=== PATIENT | male | born 1970 | race African-American/Black ===

== ENCOUNTER 2019-03-12 03:42 | Emergency (ER) | payer OTHER ==
[2019-03-12 03:54] VITALS: BP 131/85; PULSE 74; TEMP 98.8; BMI 29.2
--- NOTE | 2019-03-14 10:57 | EKG ---
Test Reason : Blood Pressure : / mmHG Vent. Rate : 068 BPM Atrial Rate : 068 BPM P-R Int : 174 ms QRS Dur : 088 ms QT Int : 388 ms P-R-T Axes : 053 028 025 degrees QTc Int : 412 ms NORMAL SINUS RHYTHM NORMAL ECG WHEN COMPARED WITH ECG OF 15-JAN-2017 10:45, CRITERIA FOR SEPTAL INFARCT ARE NO LONGER PRESENT Confirmed by NEDA MORRIS MD ([id number]) on 03/14/2019 10:56:44 AM Referred By: Confirmed By:NEDA MORRIS MD
== END 2019-03-12 06:50 | disposition left against medical advice (07) ==
LOC: JER 03:42
DX: Z53.21 Procedure and treatment not carried out due to patient leaving prior to being seen by health care provider (principal)
CPT/HCPCS: 93005; 93010; 99281-25

== ENCOUNTER → 2021-03-29 | Day surgery (SDC) | payer OTHER | END | disposition home or self-care (01) | LOC: JRADIR 10:37 | PROVIDERS: ATTEND Family Medicine | PROC: 0G9G3ZX Drainage of Left Thyroid Gland Lobe, Percutaneous Approach, Diagnostic (ICD-10-PCS; principal; 2021-03-29) | DX: E04.1 Nontoxic single thyroid nodule (principal) | CPT/HCPCS: 10005; 76942; 88173; 88305-TC ==

== ENCOUNTER 2021-06-25 13:47 | Emergency (ER) | payer OTHER ==
[2021-06-25 14:06] VITALS: BP 128/88; PULSE 86; TEMP 98.1; BMI 28.5
[2021-06-25] MEDS ORDERED: SODIUM CHLORIDE 0.9% 500 ML INFUS.BAG IV ONE (14:48)
[2021-06-25 15:32] LABS: HEMOGLOBIN 14.7 GM/dL (11.7-16.9); LYMPH % 34.7 % (8-40); MCH 29.6 pg (25.7-33.7); MCHC 34.2 g/dl (32.0-35.9); MEAN CELL VOLUME 86.6 fl (80-96); MEAN PLT VOLUME 8.6 fl (7.5-11.1); NEUT % 49.9 % (42.8-82.8); PLATELET COUNT 206 10^3/uL (134-434); RBC 4.97 M/mm3 (4.00-5.60); RDW 14.8 % (11.9-15.9); WHITE BLOOD COUNT 8.8 K/mm3 (4.0-10.0)
[2021-06-25 15:33] LABS: BASO % 0.7 % (0-2.0); EOS % 2.7 % (0-4.5)
[2021-06-25 15:56] LABS: CALCIUM 8.5 mg/dL (8.5-10.1)
[2021-06-25 15:57] LABS: ALBUMIN 3.9 g/dl (3.4-5.0)
[2021-06-25 16:00] LABS: CREATININE 1.1 mg/dL (0.55-1.3)
[2021-06-25 16:01] LABS: BILIRUBIN,TOTAL 0.8 mg/dL (0.2-1); TOT PROT 7.4 g/dl (6.4-8.2)
== END 2021-06-25 17:08 | disposition home or self-care (01) ==
LOC: JER 13:47
DX: R19.7 Diarrhea, unspecified (principal); Z11.52 Encounter for screening for COVID-19
CPT/HCPCS: 36415; 80053; 85025; 99284-25; C9803; U0003; U0005

== ENCOUNTER 2022-07-14 10:55 | Emergency (ER) | payer OTHER ==
[2022-07-14 11:13] VITALS: BP 117/81; PULSE 73; RESP 19; TEMP 97.9; BMI 29.8
[2022-07-14] MEDS ORDERED: IBUPROFEN 600 MG TABLET (FP) PO ONE ×2 (12:04→12:17)
== END 2022-07-14 12:40 | disposition home or self-care (01) ==
LOC: JER 10:55
DX: R51.9 Headache, unspecified (principal); Z20.822 Contact with and (suspected) exposure to COVID-19
CPT/HCPCS: 0241U-QW; 99283-25

== ENCOUNTER 2022-10-09 09:49 | Emergency (ER) | payer OTHER ==
[2022-10-09 10:17] VITALS: BP 121/80; PULSE 87; RESP 20; TEMP 98; BMI 30.7
[2022-10-09] MEDS ORDERED: ACETAMINOPHEN 1000 MG/100 ML BAG IVPB ONE (10:27)
[2022-10-09] MEDS ORDERED: FAMOTIDINE 20 MG/50 ML IVPB 20 MG/50 ML MG IVPB ONE ×2 (10:27→10:53)
[2022-10-09] MEDS ORDERED: SODIUM CHLORIDE 0.9% 500 ML INFUS.BAG IV ONE (10:27)
[2022-10-09] MEDS ORDERED: MAG HYDROX/AL HYDROX/SIMETH 30 ML UNIT-DOSE CUP PO ONE (10:27)
[2022-10-09 10:46] LABS: BASO % 1.3 % (0-2.0); EOS % 4.4 % (0-4.5); HEMATOCRIT 46.1 % (35.4-49); HEMOGLOBIN 15.3 GM/dL (11.7-16.9); LYMPH % 37.6 % (8-40); MCHC 33.2 g/dl (32.0-35.9); MEAN CELL VOLUME 87.1 fl (80-96); MEAN PLT VOLUME 8.6 fl (7.5-11.1); MONO % 9.9 % (3.8-10.2); NEUT % 46.8 % (42.8-82.8); PLATELET COUNT 255 10^3/uL (134-434); RBC 5.29 M/mm3 (4.00-5.60); RDW 15.3 % (11.9-15.9)
[2022-10-09] MEDS ORDERED: ACETAMINOPHEN INJECTION 100 ML IVPB ONE (10:52)
[2022-10-09] MEDS ORDERED: MAG HYDROX/AL HYDROX/SIMETH 30 ML UNIT-DOSE CUP ONE (10:52)
[2022-10-09 10:54] LABS: INR 1.09 (0.83-1.09); PROTHROMBIN TIME (PATIENT) 12.6 SEC (9.7-13.0)
[2022-10-09 10:56] LABS: ACTIVATED PTT 30.1 SECONDS (25.2-36.5)
[2022-10-09 11:14] LABS: CALCIUM 9.2 mg/dL (8.5-10.1)
[2022-10-09 11:15] LABS: ALBUMIN 3.8 g/dl (3.4-5.0)
[2022-10-09 11:29] LABS: BILIRUBIN,TOTAL 0.9 mg/dL (0.2-1); CREATININE 0.9 mg/dL (0.55-1.3); TOT PROT 7.1 g/dl (6.4-8.2)
== END 2022-10-09 13:30 | disposition home or self-care (01) ==
LOC: JER 09:49
PROC: 3E0333Z Introduction of Anti-inflammatory into Peripheral Vein, Percutaneous Approach (ICD-10-PCS; principal; 2022-10-09)
PROC: 3E033GC Introduction of Other Therapeutic Substance into Peripheral Vein, Percutaneous Approach (ICD-10-PCS; 2022-10-09)
DX: R07.9 Chest pain, unspecified (principal)
CPT/HCPCS: 36415; 71045-TC-FY; 80053; 83735; 84484; 85025; 85610; 85730; 93005; 93010; 99285-25

== ENCOUNTER 2023-05-09 14:00 | Emergency (ER) | payer OTHER ==
[2023-05-09 14:15] VITALS: TEMP 98.3; BMI 30.7
[2023-05-09 15:06] LABS: EOS % 3.2 % (0-4.5); HEMATOCRIT 45.7 % (35.4-49); HEMOGLOBIN 15.5 GM/dL (11.7-16.9); LYMPH % 39.9 % (8-40); MCH 28.7 pg (25.7-33.7); MCHC 33.8 g/dl (32.0-35.9); MEAN CELL VOLUME 85.1 fl (80-96); MONO % 12.4 % (3.8-10.2); NEUT % 43.5 % (42.8-82.8); PLATELET COUNT 216 10^3/uL (134-434); RBC 5.37 M/mm3 (4.00-5.60); RDW 15.3 % (11.9-15.9); WHITE BLOOD COUNT 7.4 K/mm3 (4.0-10.0)
[2023-05-09] MEDS ORDERED: MAG HYDROX/AL HYDROX/SIMETH 30 ML UNIT-DOSE CUP PO ONE (15:14)
[2023-05-09] MEDS ORDERED: FAMOTIDINE 20 MG/50 ML IVPB 20 MG/50 ML MG IVPB ONE ×2 (15:14→15:33)
[2023-05-09] MEDS ORDERED: MAG HYDROX/AL HYDROX/SIMETH 30 ML UNIT-DOSE CUP ONE (15:33)
[2023-05-09 15:36] LABS: POTASSIUM 4.5 mmol/L (3.5-5.1)
[2023-05-09 15:39] LABS: ALBUMIN 4.1 g/dl (3.4-5.0); BLOOD UREA NITROGEN 10.9 mg/dL (7-18); CALCIUM 9.3 mg/dL (8.5-10.1)
[2023-05-09 15:44] LABS: BILIRUBIN,TOTAL 1.1 mg/dL (0.2-1); TOT PROT 7.3 g/dl (6.4-8.2)
[2023-05-09 16:23] VITALS: BP 170/73; PULSE 61; RESP 14
== END 2023-05-09 16:38 | disposition home or self-care (01) ==
LOC: JER 14:00
PROC: 3E033GC Introduction of Other Therapeutic Substance into Peripheral Vein, Percutaneous Approach (ICD-10-PCS; principal; 2023-05-09)
DX: R12 Heartburn (principal); R07.2 Precordial pain
CPT/HCPCS: 36415; 71045-TC-FY; 80053; 84484; 85025; 93005; 93010; 99285-25

== ENCOUNTER 2023-12-06 20:32 | Emergency (ER) | payer OTHER ==
[2023-12-06 20:38] VITALS: BMI 30.4
[2023-12-06] MEDS ORDERED: ACETAMINOPHEN 1000 MG/100 ML BAG IVPB ONE (21:24)
[2023-12-06] MEDS ORDERED: SODIUM CHLORIDE 0.9% 500 ML INFUS.BAG IV ONE (21:24)
[2023-12-06] MEDS ORDERED: FAMOTIDINE 20 MG/50 ML IVPB 20 MG/50 ML MG IVPB ONE ×2 (21:36→21:46)
[2023-12-06] MEDS ORDERED: ACETAMINOPHEN INJECTION 100 ML IVPB ONE (21:46)
[2023-12-06 22:14] LABS: BASO % 1.3 % (0-2.0); HEMATOCRIT 44.2 % (35.4-49); HEMOGLOBIN 14.8 GM/dL (11.7-16.9); LYMPH % 46.2 % (8-40); MCH 28.9 pg (25.7-33.7); MCHC 33.5 g/dl (32.0-35.9); MEAN CELL VOLUME 86.4 fl (80-96); MEAN PLT VOLUME 8.3 fl (7.5-11.1); NEUT % 35.5 % (42.8-82.8); PLATELET COUNT 231 10^3/uL (134-434); RBC 5.11 M/mm3 (4.00-5.60); WHITE BLOOD COUNT 7.7 K/mm3 (4.0-10.0)
[2023-12-06 22:22] LABS: INR 1.11 (0.83-1.09); PROTHROMBIN TIME (PATIENT) 12.9 SEC (9.7-13.0)
[2023-12-06 22:25] LABS: ACTIVATED PTT 29.1 SECONDS (25.2-36.5)
[2023-12-06 22:34] LABS: POTASSIUM 4.1 mmol/L (3.5-5.1)
[2023-12-06 22:36] LABS: CALCIUM 9.3 mg/dL (8.5-10.1)
[2023-12-06 22:37] LABS: ALBUMIN 3.6 g/dl (3.4-5.0); BLOOD UREA NITROGEN 17.4 mg/dL (7-18); MAGNESIUM 2.1 mg/dL (1.8-2.4)
[2023-12-06 22:41] LABS: BILIRUBIN,TOTAL 0.8 mg/dL (0.2-1); TOT PROT 7.1 g/dl (6.4-8.2)
[2023-12-07 00:27] VITALS: BP 131/74; PULSE 72; RESP 16; TEMP 97.3
== END 2023-12-07 01:18 | disposition home or self-care (01) ==
LOC: JER 20:32
PROC: 3E033GC Introduction of Other Therapeutic Substance into Peripheral Vein, Percutaneous Approach (ICD-10-PCS; principal; 2023-12-06)
PROC: 3E033GC Introduction of Other Therapeutic Substance into Peripheral Vein, Percutaneous Approach (ICD-10-PCS; 2023-12-06)
DX: R06.02 Shortness of breath (principal); R07.89 Other chest pain; Z20.822 Contact with and (suspected) exposure to COVID-19
CPT/HCPCS: 0241U-QW; 36415; 71046-TC-FY; 80053; 83735; 84484; 85025; 85610; 85730; 93005; 93010; 99285-25

== ENCOUNTER 2024-07-06 16:22 | Emergency (ER) | payer OTHER ==
[2024-07-06 16:41] VITALS: TEMP 98.2; BMI 30.4
[2024-07-06] MEDS ORDERED: MAG HYDROX/AL HYDROX/SIMETH 30 ML UNIT-DOSE CUP ONE (17:39)
[2024-07-06] MEDS ORDERED: ACETAMINOPHEN INJECTION 100 ML ONE (17:39)
[2024-07-06] MEDS ORDERED: FAMOTIDINE 20 MG/50 ML IVPB 20 MG/50 ML MG IVPB ONE (17:39)
[2024-07-06] MEDS: LACTATED RINGERS SOLUTION 1000 ML INFUS.BAG IV ONE (17:59)
[2024-07-06] MEDS: MAG HYDROX/AL HYDROX/SIMETH 30 ML UNIT-DOSE CUP PO ONE (17:59)
[2024-07-06] MEDS: ACETAMINOPHEN 1000 MG/100 ML BAG IVPB ONE (18:00)
[2024-07-06] MEDS: FAMOTIDINE 20 MG/50 ML IVPB 20 MG/50 ML MG IVPB ONE (18:00)
[2024-07-06 18:04] LABS: BASO % 1.1 % (0-2.0); EOS % 2.2 % (0-4.5); HEMATOCRIT 45.4 % (35.4-49); HEMOGLOBIN 15.3 GM/dL (11.7-16.9); LYMPH % 44.3 % (8-40); MCH 29.2 pg (25.7-33.7); MCHC 33.8 g/dl (32.0-35.9); MEAN CELL VOLUME 86.5 fl (80-96); MEAN PLT VOLUME 7.8 fl (7.5-11.1); MONO % 10.6 % (3.8-10.2); NEUT % 41.8 % (42.8-82.8); PLATELET COUNT 240 10^3/uL (134-434); RBC 5.25 M/mm3 (4.00-5.60); WHITE BLOOD COUNT 9.6 K/mm3 (4.0-10.0)
[2024-07-06 18:09] LABS: INR 1.04 (0.83-1.09)
[2024-07-06 18:12] LABS: ACTIVATED PTT 28.5 SECONDS (25.2-36.5)
[2024-07-06 20:04] LABS: POTASSIUM 4.2 mmol/L (3.5-5.1)
[2024-07-06 20:06] LABS: CALCIUM 8.8 mg/dL (8.5-10.1)
[2024-07-06 20:07] LABS: ALBUMIN 3.6 g/dl (3.4-5.0); BLOOD UREA NITROGEN 15.3 mg/dL (7-18)
[2024-07-06 20:10] LABS: CREATININE 1.1 mg/dL (0.55-1.3)
[2024-07-06 20:11] LABS: TOT PROT 6.8 g/dl (6.4-8.2)
[2024-07-06 21:12] VITALS: BP 128/83; PULSE 75; RESP 18
== END 2024-07-06 21:11 | disposition home or self-care (01) ==
LOC: JER 16:22
PROC: 3E033GC Introduction of Other Therapeutic Substance into Peripheral Vein, Percutaneous Approach (ICD-10-PCS; principal; 2024-07-06)
PROC: 3E033NZ Introduction of Analgesics, Hypnotics, Sedatives into Peripheral Vein, Percutaneous Approach (ICD-10-PCS; 2024-07-06)
DX: R07.2 Precordial pain (principal); M79.10 Myalgia, unspecified site; R06.00 Dyspnea, unspecified; Z20.822 Contact with and (suspected) exposure to COVID-19
CPT/HCPCS: 0241U-QW; 36415; 71045-TC-FY; 80053; 84484; 85025; 85379; 85610; 85730; 93005; 93010; 99285-25; J0131

== ENCOUNTER 2025-06-28 10:08 | Emergency (ER) | payer OTHER ==
[2025-06-28 10:14] VITALS: BP 117/81; PULSE 85; RESP 18; TEMP 98.3; BMI 30.4
[2025-06-28] MEDS ORDERED: KETOROLAC TROMETHAMINE 30 MG/1 ML VIAL ONE (10:55)
[2025-06-28] MEDS ORDERED: LIDOCAINE 4% PATCH TP ONE (10:55)
[2025-06-28] MEDS ORDERED: ACETAMINOPHEN 500 MG TABLET (FP) ONE (10:55)
[2025-06-28] MEDS: KETOROLAC TROMETHAMINE 30 MG/1 ML VIAL IM ONE (11:05)
[2025-06-28] MEDS: LIDOCAINE 4% PATCH TP ONE (11:05)
[2025-06-28] MEDS: ACETAMINOPHEN 500 MG TABLET (FP) PO ONE (11:06)
[2025-06-28] MEDS ORDERED: LIDOCAINE PATCH REMOVAL MC SCH (22:00)
== END 2025-06-28 12:14 | disposition home or self-care (01) ==
LOC: JERFT 10:08
PROC: 3E0233Z Introduction of Anti-inflammatory into Muscle, Percutaneous Approach (ICD-10-PCS; principal; 2025-06-28)
DX: M51.360 Other intervertebral disc degeneration, lumbar region with discogenic back pain only (principal); W01.0XXA Fall on same level from slipping, tripping and stumbling without subsequent striking against object, initial encounter
CPT/HCPCS: 72131-TC; 99285-25